=== PATIENT | female | born 1985 | race Caucasian/White ===

== ENCOUNTER 2021-08-27 18:07 | Outpatient (CLI) | payer OTHER ==
[2021-08-27] MEDS ORDERED: SYNTHROID125 MCG PO (19:09)
== END 2021-08-27 22:13 | disposition home or self-care (01) ==
LOC: OBS/DEL 18:07
PROVIDERS: ATTEND Obstetrics & Gynecology
DX: O23.43 Unspecified infection of urinary tract in pregnancy, third trimester (principal); N39.0 Urinary tract infection, site not specified; E16.2 Hypoglycemia, unspecified; Z3A.34 34 weeks gestation of pregnancy

== ENCOUNTER 2021-09-01 19:59 | Inpatient (IN) | payer OTHER ==
[~2021-09-01] VITALS: Ht 162.6 cm; Wt 127.0 kg
[~2021-09-01 19:59] MED LIST: SYNTHROID125 MCG PO
[2021-09-01] MEDS ORDERED: PRENATAL TABLE1 EAC3 PO (21:05)
== END 2021-09-05 12:23 | disposition home or self-care (01) | DRG 785 ==
LOC: LDR 19:59 → OB/GYN 19:59 → LDR 23:06 → OB/GYN 09-02 22:54
PROVIDERS: ADMIT Obstetrics & Gynecology; ATTEND Obstetrics & Gynecology
PROC: 4A1HXCZ Monitoring of Products of Conception, Cardiac Rate, External Approach (ICD-10-PCS; 2021-09-01)
PROC: 0UB70ZZ Excision of Bilateral Fallopian Tubes, Open Approach (ICD-10-PCS; 2021-09-02)
PROC: 10D00Z1 Extraction of Products of Conception, Low, Open Approach (ICD-10-PCS; principal; 2021-09-02 20:00)
DX: O34.211 Maternal care for low transverse scar from previous cesarean delivery (principal); O13.3 Gestational [pregnancy-induced] hypertension without significant proteinuria, third trimester; Z30.2 Encounter for sterilization; Z20.822 Contact with and (suspected) exposure to COVID-19; Z3A.38 38 weeks gestation of pregnancy; Z37.0 Single live birth